=== PATIENT | male | born 1950 | race Caucasian/White ===

== ENCOUNTER 2021-07-27 07:59 | Day surgery (SDC) | payer MEDICARE, BC ==
[2021-07-27] VITALS (9 sets, daily range): BP systolic 123–151; BP diastolic 63–92
[~2021-07-27] VITALS: Ht 177.8 cm; Wt 119.7 kg
[~2021-07-27 07:59] MED LIST: ATEN-170 PO; ATOR40TA72 PO; FENO145T25 PO; FLO0.4C PO; FURO-150 PO; LEVO50TA8 PO; PANT40TA54 PO; PIOG15TA67 PO; SITA1TBM4 PO
[2021-07-27] MEDS ORDERED: diphenhydrAMINE 25mg capsule PO PRN (08:30)
[2021-07-27 09:17] LABS: EOSINOPHILS % (AUTO) 0.4 % (0-6); HEMOGLOBIN 11.1 g/dl (14.0-17.9); LYMPHOCYTES # (AUTO) 0.8 X10'3 (1.1-4.8); MONOCYTES # (AUTO) 0.7 X10'3 (0-0.9); NEUTROPHILS # (AUTO) 7.2 X10'3 (1.8-7.7); PLATELET COUNT 137 X10'3 (140-440); WHITE BLOOD COUNT 8.8 X10'3 (4.5-11.0)
[2021-07-27 09:18] LABS: ANION GAP 13 (8-16); BASOPHILS % (AUTO) 0.3 % (0-1); BLOOD UREA NITROGEN 70 MG/DL (7-18); BUN/CREATININE RATIO 27.6 (5.4-32.0); CALCIUM 8.6 MG/DL (8.5-10.1); CHLORIDE 108 MMOL/L (99-107); CREATININE 2.54 MG/DL (0.60-1.10); GLUCOSE 100 MG/DL (70-104); MEAN CORPUSCULAR HGB CONC 32.6 g/dL (33.0-36.5); MEAN CORPUSCULAR VOLUME 92.1 FL (78-98); MEAN PLATELET VOLUME 11.7 FL (7.4-10.4); MONOCYTES % (AUTO) 8.1 % (2-12); NEUTROPHILS % (AUTO) 82.2 % (42-75); POTASSIUM 4.8 MMOL/L (3.5-5.1); RED CELL DISTRIBUTION WIDTH 16.9 % (11.5-14.5); SODIUM 143 MMOL/L (135-145); TOTAL CARBON DIOXIDE 22.5 MMOL/L (24-32); eGFR 25 ML/MIN
[2021-07-27 09:19] LABS: ALBUMIN 3.7 G/DL (3.4-5.0); MAGNESIUM 2.3 MG/DL (1.5-2.4)
[2021-07-27] MEDS ORDERED: FURO20TA4 PO (09:19)
[2021-07-27] MEDS ORDERED: DEXL60CA3 PO (09:19)
[2021-07-27] MEDS: normal saline 1,000 ML IV SCH ×2 (10:07→16:08)
[2021-07-27 10:30] LABS: ANISOCYTOSIS 1+; PLATELET ESTIMATE DECREASED
[2021-07-27 10:32] LABS: LARGE PLATELETS FEW
[2021-07-27] MEDS ORDERED: iohexol 350MG/ML 100ml bottle IV ONE (11:34)
[2021-07-27] MEDS ORDERED: midazolam 1 mg/ML 2ml injection ONE ×2 (11:34→12:33)
[2021-07-27] MEDS ORDERED: iohexol 350 MG/ML 50ML vial IV ONE (11:34)
[2021-07-27] MEDS ORDERED: heparin 1,000unit/ml 10ml vial 10 ML ONE (11:34)
[2021-07-27] MEDS ORDERED: fentaNYL/PF 50MCG/1 ML 2ML syringe ONE (11:34)
[2021-07-27] MEDS ORDERED: LIDOcaine 1% (10mg/ml)w/preservative injection 20ml MDV ONE (11:34)
[2021-07-27] MEDS ORDERED: verapamil 2.5 mg/ml inj IV ONE (12:27)
[2021-07-27] MEDS ORDERED: nitroGLYCERIN-Tridil 50MG/D5W 250 ML IV ONE (12:27)
[2021-07-27] MEDS ORDERED: normal saline 1000ml 1,000 ML IV SCH (13:25)
[2021-07-27] MEDS ORDERED: HYDROcodone/acetaminophen 5mg/325mg tablet PO PRN (13:25)
[2021-07-27] MEDS ORDERED: HYDROcodone/acetaminophen 10/325mg tab PO PRN (13:25)
[2021-07-27] MEDS ORDERED: furosemide 40mg/4ml inj IV ONE (15:00)
[2021-07-27] MEDS ORDERED: ACETYLCYSTEINE 200 MG/1 ML 4 ML ORAL SOLUTION PO SCH (20:00)
== END 2021-07-27 16:40 | disposition home or self-care (01) ==
LOC: SSTAY O 07:59
PROVIDERS: ATTEND Internal Medicine Cardiovascular Disease
DX: R94.39 Abnormal result of other cardiovascular function study (principal); I25.118 Atherosclerotic heart disease of native coronary artery with other forms of angina pectoris; I10 Essential (primary) hypertension; E78.2 Mixed hyperlipidemia; K21.9 Gastro-esophageal reflux disease without esophagitis; E11.9 Type 2 diabetes mellitus without complications; F17.210 Nicotine dependence, cigarettes, uncomplicated; N40.0 Benign prostatic hyperplasia without lower urinary tract symptoms; Z98.61 Coronary angioplasty status; Z85.72 Personal history of non-Hodgkin lymphomas; Z98.890 Other specified postprocedural states; Z79.899 Other long term (current) drug therapy; Z72.89 Other problems related to lifestyle; Z82.49 Family history of ischemic heart disease and other diseases of the circulatory system
CPT/HCPCS: 36415; 80048; 82948; 83735; 85025; 85610; 93005; 93458; 99152; C1769; C1894; J1644; J1940; J2001; J2250; J3010; J7030; Q0163; Q9967; 85008; 99153; A4620; J3490

== ENCOUNTER 2021-08-19 09:30 | Inpatient (IN) | payer MEDICARE, BC ==
[2021-08-13 15:23] LABS: BASOPHILS % (AUTO) 0.4 % (0-1); EOSINOPHILS # (AUTO) 0.1 X10'3 (0-0.9); EOSINOPHILS % (AUTO) 0.8 % (0-6); LYMPHOCYTES # (AUTO) 0.8 X10'3 (1.1-4.8); LYMPHOCYTES % (AUTO) 11.2 % (21-51); MEAN CORPUSCULAR HEMOGLOBIN 29.6 PG (27.0-31.0); MEAN CORPUSCULAR HGB CONC 32.2 g/dL (33.0-36.5); MEAN CORPUSCULAR VOLUME 92.1 FL (78-98); MEAN PLATELET VOLUME 11.1 FL (7.4-10.4); MONOCYTES # (AUTO) 0.6 X10'3 (0-0.9); MONOCYTES % (AUTO) 8.4 % (2-12); NEUTROPHILS # (AUTO) 5.8 X10'3 (1.8-7.7); NEUTROPHILS % (AUTO) 79.2 % (42-75); PRE OP HEMATOCRIT 35.3 % (42.0-52.0); PRE OP HEMOGLOBIN 11.4 g/dL (14.0-17.9); PRE OP PLATELET COUNT 140 X10'3 (140-440); RED BLOOD COUNT 3.83 X10'6 (4.70-6.10); RED CELL DISTRIBUTION WIDTH 16.6 % (11.5-14.5)
[2021-08-13 15:38] LABS: PRE OP INR 1.2 INR
[2021-08-13 15:46] LABS: CLARITY,URINE CLEAR (Clear); COLOR,URINE YELLOW (Yellow); UA COLLECTION TYPE CLN CATCH MIDSTREAM
[2021-08-13 15:47] LABS: GLUCOSE, URINE NEGATIVE (Neg); KETONES,URINE NEGATIVE (Neg); LEUKOCYTE ESTERASE ,URINE NEGATIVE (Neg); NITRITES, URINE NEGATIVE (Neg); OCCULT BLOOD,URINE NEGATIVE (Neg); PH,URINE 7.5 (4.8-8.0); PROTEIN,URINE 30 mg/dl (Neg); UROBILINOGEN,URINE 0.2 E.U/dL (0.2-1.0)
[2021-08-13 15:48] LABS: ALBUMIN 3.6 G/DL (3.4-5.0); ALKALINE PHOSPHATASE 27 IU/L (46-116); BLOOD UREA NITROGEN 24 MG/DL (7-18); BUN/CREATININE RATIO 14.6 (5.4-32.0); CALCIUM 8.9 MG/DL (8.5-10.1); CHLORIDE 106 MMOL/L (99-107); CREATININE 1.64 MG/DL (0.60-1.10); PRE OP ALT 36 U/L (30-65); PRE OP ANION GAP 8 (8-16); PRE OP AST 42 U/L (10-37); PRE OP BILIRUB, TOTAL 0.8 MG/DL (0.0-1.0); PRE OP GLUCOSE 78 MG/DL (70-104); PRE OP POTASSIUM 4.7 MMOL/L (3.4-5.1); PRE OP SODIUM 140 MMOL/L (135-145); TOTAL PROTEIN 7.1 G/DL (6.4-8.2); eGFR 42 ML/MIN
[2021-08-13 15:52] LABS: BACTERIA,URINE NONE SEEN /HPF (Neg); MUCUS STRANDS NONE SEEN /LPF (Neg); RBC,URINE NONE SEEN /HPF (0-2); SQUAMOUS EPITHELIAL CELL,UR FEW /LPF (FEW); WBC,URINE NONE SEEN /HPF (0-4)
[2021-08-13 15:55] LABS: ANISOCYTOSIS 1+; LARGE PLATELETS FEW; PLATELET ESTIMATE NORMAL
[2021-08-17 06:24] LABS: ABG BASE EXCESS -1.2 mmol/L (-2.0-2.0); ABG OXYGEN SATURATION 96.7 % (94-97); ABG PO2 (T) 85.1 mmHg (75.0-100.0); ALLEN'S TEST POSITIVE; FCOHb 0.4 % (0.0-3.9); FMetHb 0.2 % (0.0-1.5); FO2Hb 96.1 % (94-97); TOTAL HEMOGLOBIN 11.8 G/dl (14.0-18.0)
[~2021-08-19] VITALS: Ht 177.8 cm; Wt 120.7 kg
[2021-08-19] VITALS (16 sets, daily range): BP systolic 70–124; BP diastolic 42–66
[~2021-08-19 09:30] MED LIST changes: +ASPI-1264 PO; -ATEN-170 PO; +ATEN100T PO; +CHOL200012 PO; +DEXL60CA3 PO; -FURO-150 PO; +LIDOcaine 2% (20 mg/ml) 5ml cardiac syringe ONE; +LORazepam 2 mg/ml vial IV PRN; -PANT40TA54 PO; +VANCOMYCIN 1,500MG inj. 1,500 MG in normal saline 500ml IV soln 500 ML IV ONE; +albumin (human) 25% 100 ML IV solution IV ONE; +albuterol 2.5 MG/3 ML nebule NEB ONE; +albuterol 2.5 MG/3 ML nebule NEB PRN; +aminocaproic acid 250 MG/1 ML inj. ONE; +calcium chloride 100 MG/1 ML inj IV ONE; +ceFAZolin 1000mg inj ONE; +ceFAZolin inj. 3,000 MG in normal saline 100ml IV soln 100 ML IV ONE; +epiNEPHrine 1 mg/ml inj ONE; +famotidine 20mg tablet PO ONE; +gabapentin 400mg capsule PO ONE; +heparin 10,000 units/1 ML INJ ONE; +magnesium sulf 1 GM/2 ML ONE; +methylPREDNISolone sod succ 1000mg vial ONE; +metoprolol tartrate 12.5mg (1/2 tablet) PO ONE; +papaverine 30 mg/ml 2ml inj. ONE; +phenylephrine 10mg/ml inj. ONE; +potassium acetate 2 mEq/1ml inj. IV ONE; +ringers solution, lacted 1,000 ML IV SCH; +sodium bicarbonate (8.4%) 1 mEq/ml syringe ONE
[2021-08-19] MEDS ORDERED: dextrose 50%-water 50ml dispensing syringe IV PRN ×2 (10:30→16:10)
[2021-08-19] MEDS: mupirocin 2% nasal ointment 1gm UD NS SCH ×2 (11:13→20:27)
[2021-08-19] MEDS ORDERED: propofol inj 20 ML IV ONE ×2 (11:41)
[2021-08-19] MEDS ORDERED: rocuronium 10mg/ml inj IV ONE ×3 (11:41→11:54)
[2021-08-19] MEDS ORDERED: SUFENTANIL CITRATE 50 MCG/ML 2ml ampule IV ONE (11:41)
[2021-08-19] MEDS ORDERED: MIDAZolam 1 MG/ML 5ML VIAL ONE (11:42)
[2021-08-19] MEDS ORDERED: nitroGLYCERIN in D5W 50mg/250ml (Tridil) infusion IV ONE (11:54)
[2021-08-19] MEDS ORDERED: NORepinephrine 8 MG in NS 250 ML BAG (32 mcg/ml) IV ONE (11:54)
[2021-08-19] MEDS ORDERED: protamine sulf. 10mg/ml inj. IV ONE (11:54)
[2021-08-19] MEDS ORDERED: sevoflurane 250ml liquid IH ONE (11:54)
[2021-08-19] MEDS ORDERED: heparin 10,000 units/1 ML INJ IR ONE (12:00)
[2021-08-19] MEDS ORDERED: papaverine 30 mg/ml 2ml inj. IA ONE (12:00)
[2021-08-19 12:45] LABS: ABG BASE EXCESS -5.6 mmol/L (-2.0-2.0); ABG HCO3 18.6 mmol/L (22.0-26.0); ABG OXYGEN SATURATION 94.5 % (94-97); ABG PCO2 31.7 mmHg (35.0-48.0); ABG PO2 75.3 mmHg (75.0-100.0); CL (ABG) 109 mmol/L (98-110); FCOHb 0.8 % (0.0-3.9); FMetHb 0.3 % (0.0-1.5); FO2Hb 93.5 % (94-97); GLUCOSE (ABG) 75 mg/dl (70-105); IONIZED CA (ABG) 1.18 mmol/L (1.10-1.43); K (ABG) 3.8 mmol/L (3.5-5.0); TOTAL HEMOGLOBIN 9.2 G/dl (14.0-18.0)
[2021-08-19 13:32] LABS: ABG BASE EXCESS VENOUS -1.2 mmol/L (-2.0 - 2.0); ABG HCO3 VENOUS 23.8 mmol/L (21.0-28.0); ABG PO2 VENOUS 52.1 mmHg (25.0-35.0); CL (ABG) 106 mmol/L (98-110); FCOHb VENOUS 1.7 %; FHHb VENOUS 14.3 %; FMetHb VENOUS 0.3 % (0.0 - 0.5); FO2Hb VENOUS 83.7 %; GLUCOSE (ABG) 85 mg/dl (70-105); IONIZED CA (ABG) 1.05 mmol/L (1.10-1.43); K (ABG) 4.1 mmol/L (3.5-5.0); TOTAL HEMOGLOBIN 7.4 G/dl (14.0-18.0)
[2021-08-19 13:38] LABS: ABG BASE EXCESS -2.2 mmol/L (-2.0-2.0); ABG HCO3 22.5 mmol/L (22.0-26.0); ABG OXYGEN SATURATION 99.7 % (94-97); ABG PCO2 38.1 mmHg (35.0-48.0); ABG PO2 404.3 mmHg (75.0-100.0); CL (ABG) 107 mmol/L (98-110); FCOHb 1.3 % (0.0-3.9); FMetHb 0.1 % (0.0-1.5); FO2Hb 98.3 % (94-97); GLUCOSE (ABG) 85 mg/dl (70-105); IONIZED CA (ABG) 1.09 mmol/L (1.10-1.43); K (ABG) 4.1 mmol/L (3.5-5.0); TOTAL HEMOGLOBIN 7.4 G/dl (14.0-18.0)
[2021-08-19 14:10] LABS: ABG BASE EXCESS -2.5 mmol/L (-2.0-2.0); ABG HCO3 22.4 mmol/L (22.0-26.0); ABG OXYGEN SATURATION 99.7 % (94-97); ABG PO2 302.3 mmHg (75.0-100.0); CL (ABG) 108 mmol/L (98-110); FCOHb 1.7 % (0.0-3.9); FMetHb 0.3 % (0.0-1.5); FO2Hb 97.7 % (94-97); GLUCOSE (ABG) 100 mg/dl (70-105); IONIZED CA (ABG) 1.11 mmol/L (1.10-1.43); K (ABG) 4.4 mmol/L (3.5-5.0); TOTAL HEMOGLOBIN 7.5 G/dl (14.0-18.0)
[2021-08-19 14:41] LABS: ABG BASE EXCESS -1.2 mmol/L (-2.0-2.0); ABG HCO3 25.7 mmol/L (22.0-26.0); ABG OXYGEN SATURATION 99.7 % (94-97); ABG PO2 277.7 mmHg (75.0-100.0); CL (ABG) 107 mmol/L (98-110); FCOHb 1.8 % (0.0-3.9); FMetHb 0.3 % (0.0-1.5); FO2Hb 97.6 % (94-97); GLUCOSE (ABG) 115 mg/dl (70-105); IONIZED CA (ABG) 1.14 mmol/L (1.10-1.43); K (ABG) 4.9 mmol/L (3.5-5.0)
[2021-08-19 15:09] LABS: ABG BASE EXCESS -0.4 mmol/L (-2.0-2.0); ABG HCO3 26.1 mmol/L (22.0-26.0); ABG PCO2 53.2 mmHg (35.0-48.0); ABG PO2 269.5 mmHg (75.0-100.0); CL (ABG) 106 mmol/L (98-110); FMetHb 0.3 % (0.0-1.5); FO2Hb 98.7 % (94-97); GLUCOSE (ABG) 131 mg/dl (70-105); IONIZED CA (ABG) 1.23 mmol/L (1.10-1.43); K (ABG) 4.9 mmol/L (3.5-5.0); TOTAL HEMOGLOBIN 8.2 G/dl (14.0-18.0)
[2021-08-19 15:47] LABS: ABG BASE EXCESS VENOUS -0.5 mmol/L (-2.0 - 2.0); ABG HCO3 VENOUS 25.1 mmol/L (21.0-28.0); ABG PCO2 VENOUS 46.2 mmHg (41.0-54.0); ABG PO2 VENOUS 44.9 mmHg (25.0-35.0); CL (ABG) 110 mmol/L (98-110); FCOHb VENOUS 0.8 %; FHHb VENOUS 22.8 %; FO2Hb VENOUS 76.4 %; GLUCOSE (ABG) 157 mg/dl (70-105); IONIZED CA (ABG) 1.28 mmol/L (1.10-1.43); K (ABG) 4.2 mmol/L (3.5-5.0); TOTAL HEMOGLOBIN 7.8 G/dl (14.0-18.0)
[2021-08-19] MEDS ORDERED: albumin (Human) 5% 250ml 250 ML IV ONE ×3 (16:06→23:35)
[2021-08-19] MEDS ORDERED: pantoprazole 40 MG vial IV ONE (16:10)
[2021-08-19] MEDS ORDERED: albumin (Human) 5% 250ml 250 ML IV PRN (16:10)
[2021-08-19] MEDS ORDERED: potassium CL 10mEq/100ml bag 100 ML IV PRN (16:10)
[2021-08-19] MEDS ORDERED: potassium Cl 20mEq/100mL bag 100 ML IV PRN (16:10)
[2021-08-19] MEDS ORDERED: potassium Cl 20 mEq SR tablet PO PRN (16:10)
[2021-08-19] MEDS ORDERED: magnesium 4gm in 100ml NS 100 ML IV PRN (16:10)
[2021-08-19] MEDS ORDERED: bisacodyl 10mg suppository rectal RC PRN (16:10)
[2021-08-19] MEDS ORDERED: Neutra Phos packet PO PRN (16:10)
[2021-08-19] MEDS ORDERED: mineral oil 133ml enema RC PRN (16:10)
[2021-08-19] MEDS ORDERED: morphine 4 MG/ML inj SYRINge IV PRN (16:10)
[2021-08-19] MEDS ORDERED: acetaminophen 325mg tablet PO PRN ×2 (16:10)
[2021-08-19] MEDS ORDERED: ondansetron/PF 4mg/2ml inj IV PRN (16:10)
[2021-08-19] MEDS ORDERED: Insulin Reg/NS 100units/100mL 100 ML IV SCH (16:10)
[2021-08-19] MEDS ORDERED: potassium Cl 40MEQ/250ML bag 250 ML IV PRN (16:10)
[2021-08-19] MEDS ORDERED: magnesium 2GM in 50ml NS 50 ML IV PRN (16:10)
[2021-08-19] MEDS ORDERED: metoclopramide 5 mg/ml inj IV PRN (16:10)
[2021-08-19] MEDS ORDERED: sodium phosphate inj. 15 MMOL in dextrose 5%-water 250 ML IV PRN (16:10)
[2021-08-19] MEDS ORDERED: magnesium hydroxide 30ml (MOM) UD suspension PO PRN (16:10)
[2021-08-19] MEDS ORDERED: magnesium citrate 296ml oral solution PO PRN (16:10)
[2021-08-19] MEDS ORDERED: niCARDipine-NS 40mg/200ml IVPB 200 ML IV PRN (16:10)
[2021-08-19] MEDS ORDERED: nitroGLYCERIN-Tridil 50MG/D5W 250 ML IV PRN (16:10)
[2021-08-19] MEDS ORDERED: insulin glargine (Lantus) pen - multi-dose SQ PRN (16:10)
[2021-08-19] MEDS ORDERED: potassium Cl 40MEQ/1/2NS 520ml 520 ML IV PRN (16:10)
[2021-08-19] MEDS ORDERED: sodium phosphate inj. 30 MMOL in dextrose 5%-water 250 ML IV PRN (16:10)
[2021-08-19] MEDS ORDERED: amiodarone/D5 360MG/200ML BAG 200 ML IV ONE (16:31)
[2021-08-19] MEDS ORDERED: amiodarone 150mg/dext, iso-os 100 ML IV ONE (16:31)
--- NOTE | 2021-08-19 16:45 | NUR ---
Received to room 2044, accompanied by Chepe Jauregui] and surgical crew. Placed on ventilator, to quality assurance monitor body, arterial line and PA line pressure monitored. Chest tubes to suction at 20 cm. Walls cath to gravity drainage. Dressings are dry and intact. See assessment record. All vasoactive drugs are infusing via central line.Volume given for low b/p Patient on levophed from OR Dobutamine at .25 mcg CI 1.8 Mod amt of chest tube drainage noted Lab sent Insulin gtt started for BS 170
[2021-08-19 17:14] LABS: ABG BASE EXCESS -6.5 mmol/L (-2.0-2.0); ABG HCO3 18.6 mmol/L (22.0-26.0); ABG OXYGEN SATURATION 94.9 % (94-97); ABG PCO2 (T) 34.2 mmHg (35.0-48.0); ABG PO2 (T) 78.1 mmHg (75.0-100.0); FCOHb 0.3 % (0.0-3.9); FMetHb 0.4 % (0.0-1.5); FO2Hb 94.2 % (94-97); PATIENT TEMPERATURE 36.2; PEEP 5 cm H2O; RESPIRATORY RATE 12 b/min; TIDAL VOLUME 600 mL; TOTAL HEMOGLOBIN 10.1 G/dl (14.0-18.0)
--- NOTE | 2021-08-19 17:20 | NUR ---
Pt remains paced at 90 CI 1.8 @ albumin given Dr. Jauregui at bedside aware of 200 chest tube output and ABG results
[2021-08-19 17:25] LABS: BASOPHILS % (AUTO) 0.1 % (0-1); EOSINOPHILS % (AUTO) 0.2 % (0-6); HEMATOCRIT 28.7 % (42.0-52.0); HEMOGLOBIN 9.1 g/dl (14.0-17.9); LYMPHOCYTES # (AUTO) 0.4 X10'3 (1.1-4.8); LYMPHOCYTES % (AUTO) 2.9 % (21-51); MEAN CORPUSCULAR HGB CONC 31.7 g/dL (33.0-36.5); MEAN CORPUSCULAR VOLUME 91.6 FL (78-98); MEAN PLATELET VOLUME 11.1 FL (7.4-10.4); MONOCYTES # (AUTO) 0.6 X10'3 (0-0.9); MONOCYTES % (AUTO) 4.3 % (2-12); NEUTROPHILS # (AUTO) 13.5 X10'3 (1.8-7.7); NEUTROPHILS % (AUTO) 92.5 % (42-75); RED BLOOD COUNT 3.13 X10'6 (4.70-6.10); RED CELL DISTRIBUTION WIDTH 15.9 % (11.5-14.5); WHITE BLOOD COUNT 14.6 X10'3 (4.5-11.0)
[2021-08-19 17:27] LABS: PARTIAL THROMBOPLASTIN TIME 29 SECONDS (22-32)
[2021-08-19 17:32] LABS: ALANINE AMINOTRANSFERASE 24 U/L (12-78); ALBUMIN 2.7 G/DL (3.4-5.0); ALBUMIN/GLOBULIN RATIO 1.5 (1.1-1.5); ALKALINE PHOSPHATASE 14 IU/L (46-116); ANION GAP 10 (8-16); ASPARTATE AMINO TRANSFERASE 45 U/L (10-37); BILIRUBIN,TOTAL 0.7 MG/DL (0.1-1.0); BLOOD UREA NITROGEN 30 MG/DL (7-18); CALCIUM 8.3 MG/DL (8.5-10.1); CHLORIDE 111 MMOL/L (99-107); GLUCOSE 179 MG/DL (70-104); MAGNESIUM 2.2 MG/DL (1.5-2.4); PHOSPHORUS 3.8 MG/DL (2.3-4.5); SODIUM 144 MMOL/L (135-145); TOTAL CARBON DIOXIDE 22.8 MMOL/L (24-32); TOTAL PROTEIN 4.5 G/DL (6.4-8.2); eGFR 46 ML/MIN
[2021-08-19 17:36] LABS: POTASSIUM 4.6 MMOL/L (3.5-5.1)
[2021-08-19] MEDS: sodium chloride 0.45% 1,000 ML IV SCH (17:38)
[2021-08-19] MEDS: Insulin Reg/NS 100units/100mL 100 ML IV SCH (17:45)
[2021-08-19 17:59] LABS: PLATELET COUNT 82 X10'3 (140-440)
--- NOTE | 2021-08-19 18:00 | NUR ---
Amiodarone and mg given earlier for mult pvc while paced Pacer turned off because of freq PVC HR 70 on dobutamine CI remains 1.8 Report given to Max RN Chest tube drainage remains mod VSS on levophed and albumin
--- NOTE | 2021-08-19 19:05 | NUR ---
RN Note -MD Communication Called Dr. Jauregui regarding labs and hemodynamics. Orders received.
[2021-08-19] MEDS ORDERED: mupirocin 2% ointment 22GM NS SCH (20:00)
[2021-08-19] MEDS: sennosides/docusate sodium tablet PO SCH (20:27)
[2021-08-19] MEDS: tamsulosin 0.4mg capsule PO SCH (20:27)
[2021-08-19] MEDS: atorvastatin 10mg tablet PO SCH (20:27)
[2021-08-19] MEDS: vancomycin/NS 1 GM ADD-VANTAGE 250 ML IV SCH (20:27)
[2021-08-19] MEDS: gabapentin 300mg capsule PO SCH (20:27)
[2021-08-19] MEDS: NORepinephrine 8mg/ 250ml NS 250 ML IV PRN (20:41)
--- NOTE | 2021-08-19 20:55 | NUR ---
RN Note -MD Communication Called Dr. Jauregui regarding labs and hemodynamics. Orders received.
[2021-08-19 21:22] LABS: HEMATOCRIT 24.2 % (42.0-52.0); HEMOGLOBIN 7.7 g/dl (14.0-17.9); MEAN CORPUSCULAR HEMOGLOBIN 29.1 PG (27.0-31.0); MEAN CORPUSCULAR HGB CONC 31.9 g/dL (33.0-36.5); MEAN CORPUSCULAR VOLUME 91.5 FL (78-98); PLATELET COUNT 154 X10'3 (140-440); RED BLOOD COUNT 2.64 X10'6 (4.70-6.10); RED CELL DISTRIBUTION WIDTH 16.3 % (11.5-14.5); WHITE BLOOD COUNT 18.1 X10'3 (4.5-11.0)
[2021-08-19] MEDS: amiodarone/D5 360MG/200ML BAG 200 ML IV SCH (22:21)
--- NOTE | 2021-08-19 23:15 | NUR ---
RN Note -MD Communication Called Dr. Jauregui regarding labs and hemodynamics. Orders received.
[2021-08-19] MEDS: ceFAZolin/D5W- 1GM premix 50 ML IV SCH (23:42)
[2021-08-20] VITALS (21 sets, daily range): BP systolic 98–148; BP diastolic 50–69
[2021-08-20 00:46] LABS: HEMATOCRIT 25.3 % (42.0-52.0); HEMOGLOBIN 8.2 g/dl (14.0-17.9); MEAN CORPUSCULAR HEMOGLOBIN 29.2 PG (27.0-31.0); MEAN CORPUSCULAR HGB CONC 32.6 g/dL (33.0-36.5); MEAN CORPUSCULAR VOLUME 89.6 FL (78-98); MEAN PLATELET VOLUME 9.8 FL (7.4-10.4); PLATELET COUNT 130 X10'3 (140-440); RED BLOOD COUNT 2.82 X10'6 (4.70-6.10); RED CELL DISTRIBUTION WIDTH 16.4 % (11.5-14.5); WHITE BLOOD COUNT 15.3 X10'3 (4.5-11.0)
[2021-08-20] MEDS: NORepinephrine 8mg/ 250ml NS 250 ML IV PRN ×6 (01:18→13:29)
[2021-08-20] MEDS: morphine 4 MG/ML inj SYRINge IV PRN ×3 (01:41→05:25)
[2021-08-20 02:30] LABS: BASOPHILS % (AUTO) 0 % (0-1); EOSINOPHILS % (AUTO) 0 % (0-6); HEMATOCRIT 25.5 % (42.0-52.0); HEMOGLOBIN 8.1 g/dl (14.0-17.9); LYMPHOCYTES # (AUTO) 0.4 X10'3 (1.1-4.8); LYMPHOCYTES % (AUTO) 2.5 % (21-51); MEAN CORPUSCULAR HGB CONC 31.8 g/dL (33.0-36.5); MEAN CORPUSCULAR VOLUME 91.4 FL (78-98); MEAN PLATELET VOLUME 9.9 FL (7.4-10.4); MONOCYTES # (AUTO) 0.7 X10'3 (0-0.9); MONOCYTES % (AUTO) 4.4 % (2-12); NEUTROPHILS # (AUTO) 14.6 X10'3 (1.8-7.7); NEUTROPHILS % (AUTO) 93.1 % (42-75); PLATELET COUNT 130 X10'3 (140-440); RED BLOOD COUNT 2.79 X10'6 (4.70-6.10); WHITE BLOOD COUNT 15.7 X10'3 (4.5-11.0)
[2021-08-20 02:46] LABS: ALANINE AMINOTRANSFERASE 30 U/L (12-78); ALBUMIN 3.2 G/DL (3.4-5.0); ALBUMIN/GLOBULIN RATIO 1.7 (1.1-1.5); ALKALINE PHOSPHATASE 16 IU/L (46-116); ANION GAP 13 (8-16); ASPARTATE AMINO TRANSFERASE 55 U/L (10-37); BILIRUBIN,TOTAL 0.4 MG/DL (0.1-1.0); BLOOD UREA NITROGEN 34 MG/DL (7-18); BUN/CREATININE RATIO 15.1 (5.4-32.0); CALCIUM 7.8 MG/DL (8.5-10.1); CHLORIDE 112 MMOL/L (99-107); CREATININE 2.25 MG/DL (0.60-1.10); GLUCOSE 139 MG/DL (70-104); MAGNESIUM 2.4 MG/DL (1.5-2.4); PHOSPHORUS 5.5 MG/DL (2.3-4.5); POTASSIUM 4.9 MMOL/L (3.5-5.1); SODIUM 144 MMOL/L (135-145); TOTAL PROTEIN 5.1 G/DL (6.4-8.2); eGFR 29 ML/MIN
[2021-08-20 03:13] LABS: ABG BASE EXCESS -7.4 mmol/L (-2.0-2.0); ABG HCO3 18.6 mmol/L (22.0-26.0); ABG PCO2 (T) 38.9 mmHg (35.0-48.0); ABG PO2 (T) 87.5 mmHg (75.0-100.0); ALLEN'S TEST POSITIVE; FCOHb 0.3 % (0.0-3.9); FMetHb 0.2 % (0.0-1.5); FO2Hb 95.5 % (94-97); PATIENT TEMPERATURE 36.8; PEEP 5 cm H2O; RESPIRATORY RATE 12 b/min; TIDAL VOLUME 600 mL
[2021-08-20] MEDS ORDERED: DOBUTamine-DoBUTrex 500mg/D5W 250 ML IV ONE (05:46)
[2021-08-20] MEDS ORDERED: levoTHYROXINE 25mcg tablet PO SCH (07:00)
--- NOTE | 2021-08-20 07:30 | NUR ---
Go at bedside updated on pt condition
[2021-08-20] MEDS: aspirin 325mg tablet, delayed-release (Ecotrin) PO SCH (07:41)
[2021-08-20] MEDS: vancomycin/NS 1 GM ADD-VANTAGE 250 ML IV SCH ×2 (07:41→20:04)
[2021-08-20] MEDS: ceFAZolin/D5W- 1GM premix 50 ML IV SCH ×2 (07:41→16:30)
[2021-08-20] MEDS: gabapentin 300mg capsule PO SCH ×3 (07:42→20:04)
[2021-08-20] MEDS: sennosides/docusate sodium tablet PO SCH ×2 (07:42→19:49)
[2021-08-20] MEDS: mupirocin 2% nasal ointment 1gm UD NS SCH ×2 (07:42→20:04)
[2021-08-20] MEDS: cholecalciferol (vitamin D3) 1,000 unit (25mcg) tablet PO SCH (07:42)
[2021-08-20] MEDS: metoprolol tartrate 12.5mg (1/2 tablet) PO SCH ×2 (08:40→19:50)
[2021-08-20] MEDS: amiodarone/D5 360MG/200ML BAG 200 ML IV SCH ×2 (09:15→22:19)
[2021-08-20] MEDS ORDERED: albumin (human) 25% 100 ML IV solution IV ONE (10:20)
--- NOTE | 2021-08-20 10:28 | NUR ---
Dr. Jauregui at bedside order received for albumin 25%
[2021-08-20] MEDS ORDERED: SITA1TAB6 PO (10:43)
--- NOTE | 2021-08-20 11:03 | NUR ---
Nutrition consult: Pt s/p CABG x 3 today, would benefit from nutrition therapy education once more stable. Will continue to monitor. Addendum: 08/20/21 at [address] Amended: Links added.
--- NOTE | 2021-08-20 11:33 | NUR ---
pt more awake follows commands and attempts to help with turns
[2021-08-20 11:42] LABS: TOTAL PROTEIN,URINE RANDOM 46.4 MG/DL
[2021-08-20 12:16] LABS: CLARITY,URINE SLIGHTLY CLOUDY (Clear); COLOR,URINE YELLOW (Yellow); UA COLLECTION TYPE NON-SPECIFIED
[2021-08-20 12:17] LABS: GLUCOSE, URINE NEGATIVE (Neg); KETONES,URINE TRACE mg/dl (Neg); LEUKOCYTE ESTERASE ,URINE NEGATIVE (Neg); NITRITES, URINE NEGATIVE (Neg); OCCULT BLOOD,URINE SMALL (Neg); PROTEIN,URINE 30 mg/dl (Neg); UROBILINOGEN,URINE 0.2 E.U/dL (0.2-1.0)
[2021-08-20 12:28] LABS: BACTERIA,URINE NONE SEEN /HPF (Neg); MUCUS STRANDS FEW /LPF (Neg); RBC,URINE 0-2 /HPF (0-2); SQUAMOUS EPITHELIAL CELL,UR NONE SEEN /LPF (FEW); WBC,URINE 0-4 /HPF (0-4)
[2021-08-20 12:29] LABS: HYALINE CASTS 0-3 /LPF (NEGATIVE); SPERM MODERATE /HPF (NEGATIVE)
[2021-08-20 12:45] LABS: ABG BASE EXCESS -9.3 mmol/L (-2.0-2.0); ABG HCO3 16.7 mmol/L (22.0-26.0); ABG OXYGEN SATURATION 93.3 % (94-97); ABG PCO2 (T) 36.2 mmHg (35.0-48.0); ABG PO2 (T) 76.8 mmHg (75.0-100.0); FCOHb 0.3 % (0.0-3.9); FMetHb 0.6 % (0.0-1.5); FO2Hb 92.5 % (94-97); PATIENT TEMPERATURE 36.6; PEEP 5 cm H2O; TOTAL HEMOGLOBIN 7.7 G/dl (14.0-18.0)
[2021-08-20 13:45] LABS: UA EOSINOPHILS NO EOS /HPF
--- NOTE | 2021-08-20 14:08 | NUR ---
inder WRIGHT at bedside updated on pt condition
--- NOTE | 2021-08-20 14:10 | NUR ---
Dr. Jauregui at bedside orders received. extubate pt
[2021-08-20] MEDS ORDERED: calcium chloride 100 MG/1 ML inj IV ONE (14:15)
[2021-08-20] MEDS ORDERED: sodium bicarbonate (8.4%) 1 mEq/ml syringe IV ONE (14:15)
[2021-08-20] MEDS ORDERED: sodium bicarbonate (8.4%) 1 mEq/ml syringe ONE (14:18)
[2021-08-20] MEDS: levoTHYROXINE sod inj. 100mcg/5 ml vial IV SCH (14:59)
--- NOTE | 2021-08-20 15:05 | NUR ---
pt extubated at 1455
[2021-08-20] MEDS: HYDROcodone/acetaminophen 10/325mg tab PO PRN ×2 (15:23→20:57)
[2021-08-20] MEDS ORDERED: racepinephrine 11.25mg/0.5ml nebule IH PRN (16:40)
[2021-08-20] MEDS: albuterol 2.5 MG/3 ML nebule NEB PRN (16:51)
--- NOTE | 2021-08-20 16:55 | NUR ---
pt noted to have audible wheezes and decreased sat to 87. Dr. Rodriguez at bedside orders received
--- NOTE | 2021-08-20 17:24 | NUR ---
Dr. Jauregui [id number] of pt's increased PA pressures ( 62/39), desat into the 83-85, audible wheezes. order received to start bipap
--- NOTE | 2021-08-20 17:45 | NUR ---
pt placed on cpap at 60% with at rate of 10. pt sat is 99% pt's wob improved. pa pressures down to 58/28
[2021-08-20] MEDS ORDERED: furosemide 20 MG/2 ML vial IV ONE (18:20)
[2021-08-20 18:46] LABS: ALBUMIN 3.4 G/DL (3.4-5.0); ANION GAP 14 (8-16); BLOOD UREA NITROGEN 44 MG/DL (7-18); BUN/CREATININE RATIO 14.3 (5.4-32.0); CALCIUM 7.8 MG/DL (8.5-10.1); CHLORIDE 107 MMOL/L (99-107); CREATININE 3.07 MG/DL (0.60-1.10); GLUCOSE 142 MG/DL (70-104); POTASSIUM 5.8 MMOL/L (3.5-5.1); SODIUM 141 MMOL/L (135-145); TOTAL CARBON DIOXIDE 19.9 MMOL/L (24-32); eGFR 20 ML/MIN
[2021-08-20] MEDS: Insulin Reg/NS 100units/100mL 100 ML IV SCH (19:50)
[2021-08-20] MEDS: albuterol 2.5 MG/3 ML nebule NEB SCH (19:59)
[2021-08-20] MEDS: atorvastatin 10mg tablet PO SCH (20:04)
[2021-08-20] MEDS: tamsulosin 0.4mg capsule PO SCH (20:04)
[2021-08-20 20:36] LABS: ABG BASE EXCESS -9.1 mmol/L (-2.0-2.0); ABG HCO3 17.7 mmol/L (22.0-26.0); ABG PCO2 (T) 42.4 mmHg (35.0-48.0); ABG PO2 (T) 134.1 mmHg (75.0-100.0); FCOHb 0.3 % (0.0-3.9); FMetHb 0.7 % (0.0-1.5); PATIENT TEMPERATURE 36.7; TOTAL HEMOGLOBIN 7.4 G/dl (14.0-18.0)
[2021-08-21] VITALS (25 sets, daily range): BP systolic 99–128; BP diastolic 49–66
[2021-08-21] MEDS: ceFAZolin/D5W- 1GM premix 50 ML IV SCH ×2 (00:22→08:29)
[2021-08-21] MEDS: NORepinephrine 8mg/ 250ml NS 250 ML IV PRN ×3 (00:46→18:08)
[2021-08-21] MEDS: albuterol 2.5 MG/3 ML nebule NEB SCH ×4 (02:26→20:26)
[2021-08-21 03:11] LABS: BASOPHILS % (AUTO) 0 % (0-1); EOSINOPHILS % (AUTO) 0 % (0-6); LYMPHOCYTES # (AUTO) 0.4 X10'3 (1.1-4.8); LYMPHOCYTES % (AUTO) 1.5 % (21-51); MEAN CORPUSCULAR HEMOGLOBIN 29.2 PG (27.0-31.0); MEAN CORPUSCULAR HGB CONC 31.9 g/dL (33.0-36.5); MEAN CORPUSCULAR VOLUME 91.6 FL (78-98); MEAN PLATELET VOLUME 11.3 FL (7.4-10.4); MONOCYTES # (AUTO) 2.7 X10'3 (0-0.9); MONOCYTES % (AUTO) 11.2 % (2-12); NEUTROPHILS # (AUTO) 20.7 X10'3 (1.8-7.7); NEUTROPHILS % (AUTO) 87.3 % (42-75); PLATELET COUNT 115 X10'3 (140-440); RED BLOOD COUNT 2.25 X10'6 (4.70-6.10); RED CELL DISTRIBUTION WIDTH 17.5 % (11.5-14.5); WHITE BLOOD COUNT 23.7 X10'3 (4.5-11.0)
[2021-08-21 03:28] LABS: ALBUMIN 3.3 G/DL (3.4-5.0); ANION GAP 13 (8-16); BLOOD UREA NITROGEN 50 MG/DL (7-18); BUN/CREATININE RATIO 13.9 (5.4-32.0); CALCIUM 7.9 MG/DL (8.5-10.1); CHLORIDE 108 MMOL/L (99-107); CREATININE 3.61 MG/DL (0.60-1.10); GLUCOSE 164 MG/DL (70-104); MAGNESIUM 2.3 MG/DL (1.5-2.4); POTASSIUM 5.6 MMOL/L (3.5-5.1); SODIUM 141 MMOL/L (135-145); TOTAL CARBON DIOXIDE 20.3 MMOL/L (24-32); eGFR 17 ML/MIN
[2021-08-21 03:29] LABS: HEMATOCRIT 20.7 % (42.0-52.0); HEMOGLOBIN 6.6 g/dl (14.0-17.9)
[2021-08-21] MEDS: furosemide inj 100 MG in normal saline 100ml IV soln 90 ML IV SCH ×2 (03:50→08:46)
[2021-08-21 04:33] LABS: PLATELET ESTIMATE DECREASED; TOTAL CELLS COUNTED 100
[2021-08-21 04:34] LABS: ANISOCYTOSIS 1+; LARGE PLATELETS FEW; POLYCHROMASIA FEW
[2021-08-21 04:36] LABS: BURR CELLS 1+; SCHISTOCYTES FEW
[2021-08-21] MEDS: aspirin 325mg tablet, delayed-release (Ecotrin) PO SCH (08:00)
[2021-08-21] MEDS: metoprolol tartrate 12.5mg (1/2 tablet) PO SCH ×2 (08:00→20:30)
[2021-08-21] MEDS: mupirocin 2% nasal ointment 1gm UD NS SCH (08:00)
[2021-08-21] MEDS: gabapentin 300mg capsule PO SCH ×2 (08:29→13:00)
[2021-08-21] MEDS: pantoprazole 40mg Tablet.DR PO SCH (08:29)
[2021-08-21] MEDS: sennosides/docusate sodium tablet PO SCH ×2 (08:29→20:30)
[2021-08-21] MEDS: cholecalciferol (vitamin D3) 1,000 unit (25mcg) tablet PO SCH (08:29)
[2021-08-21] MEDS: levoTHYROXINE sod inj. 100mcg/5 ml vial IV SCH (08:31)
[2021-08-21] MEDS: amiodarone/D5 360MG/200ML BAG 200 ML IV SCH ×2 (09:00→19:43)
--- NOTE | 2021-08-21 10:24 | NUR ---
pt placed on 6 liter nc sats 94%
[2021-08-21 12:20] LABS: BASOPHILS % (AUTO) 0.1 % (0-1); EOSINOPHILS % (AUTO) 0 % (0-6); HEMATOCRIT 26.3 % (42.0-52.0); HEMOGLOBIN 8.4 g/dl (14.0-17.9); LYMPHOCYTES # (AUTO) 0.2 X10'3 (1.1-4.8); LYMPHOCYTES % (AUTO) 0.9 % (21-51); MEAN CORPUSCULAR HEMOGLOBIN 28.5 PG (27.0-31.0); MEAN CORPUSCULAR HGB CONC 31.7 g/dL (33.0-36.5); MEAN CORPUSCULAR VOLUME 89.9 FL (78-98); MEAN PLATELET VOLUME 10.8 FL (7.4-10.4); MONOCYTES # (AUTO) 2.3 X10'3 (0-0.9); MONOCYTES % (AUTO) 10.3 % (2-12); NEUTROPHILS # (AUTO) 19.7 X10'3 (1.8-7.7); NEUTROPHILS % (AUTO) 88.7 % (42-75); PLATELET COUNT 108 X10'3 (140-440); RED BLOOD COUNT 2.93 X10'6 (4.70-6.10); RED CELL DISTRIBUTION WIDTH 18.1 % (11.5-14.5); WHITE BLOOD COUNT 22.2 X10'3 (4.5-11.0)
[2021-08-21] MEDS: albuterol 2.5 MG/3 ML nebule NEB PRN (12:48)
--- NOTE | 2021-08-21 12:59 | NUR ---
while pt was drinking milk he began to cough and milk came out of his nose. meal removed pt's head elevated. battery charger informed
[2021-08-21 13:30] LABS: ANISOCYTOSIS 2+; BURR CELLS 1+; HYPOCHROMASIA 1+; PLATELET ESTIMATE DECREASED; POLYCHROMASIA 1+; SMUDGE CELLS FEW; TOTAL CELLS COUNTED 100
[2021-08-21] MEDS: tamsulosin 0.4mg capsule PO SCH (20:30)
[2021-08-21] MEDS: HYDROcodone/acetaminophen 10/325mg tab PO PRN (20:30)
[2021-08-21] MEDS: atorvastatin 10mg tablet PO SCH (20:31)
[2021-08-22] VITALS (24 sets, daily range): BP systolic 89–124; BP diastolic 44–71
[2021-08-22] MEDS: NORepinephrine 8mg/ 250ml NS 250 ML IV PRN ×3 (01:58→18:03)
[2021-08-22] MEDS: albuterol 2.5 MG/3 ML nebule NEB SCH ×5 (02:00→21:03)
[2021-08-22 03:49] LABS: BASOPHILS % (AUTO) 0.1 % (0-1); EOSINOPHILS % (AUTO) 0 % (0-6); HEMATOCRIT 25.3 % (42.0-52.0); HEMOGLOBIN 8.2 g/dl (14.0-17.9); LYMPHOCYTES # (AUTO) 0.2 X10'3 (1.1-4.8); LYMPHOCYTES % (AUTO) 1.4 % (21-51); MEAN CORPUSCULAR HEMOGLOBIN 29.1 PG (27.0-31.0); MEAN CORPUSCULAR HGB CONC 32.6 g/dL (33.0-36.5); MEAN CORPUSCULAR VOLUME 89.1 FL (78-98); MEAN PLATELET VOLUME 9.8 FL (7.4-10.4); MONOCYTES # (AUTO) 1.6 X10'3 (0-0.9); MONOCYTES % (AUTO) 9.9 % (2-12); NEUTROPHILS # (AUTO) 14.4 X10'3 (1.8-7.7); NEUTROPHILS % (AUTO) 88.6 % (42-75); PLATELET COUNT 89 X10'3 (140-440); RED BLOOD COUNT 2.83 X10'6 (4.70-6.10); RED CELL DISTRIBUTION WIDTH 18.1 % (11.5-14.5); WHITE BLOOD COUNT 16.2 X10'3 (4.5-11.0)
[2021-08-22] MEDS: furosemide inj 100 MG in normal saline 100ml IV soln 90 ML IV SCH (04:20)
[2021-08-22 04:49] LABS: ALBUMIN 3.3 G/DL (3.4-5.0); ANION GAP 15 (8-16); BLOOD UREA NITROGEN 64 MG/DL (7-18); BUN/CREATININE RATIO 13.4 (5.4-32.0); CALCIUM 7.8 MG/DL (8.5-10.1); CHLORIDE 106 MMOL/L (99-107); CREATININE 4.79 MG/DL (0.60-1.10); GLUCOSE 155 MG/DL (70-104); MAGNESIUM 2.5 MG/DL (1.5-2.4); PHOSPHORUS 8.9 MG/DL (2.3-4.5); SODIUM 140 MMOL/L (135-145); TOTAL CARBON DIOXIDE 18.8 MMOL/L (24-32); eGFR 12 ML/MIN
[2021-08-22] MEDS ORDERED: dextrose 50%-water 50ml dispensing syringe IV ONE (05:10)
[2021-08-22] MEDS ORDERED: insulin regular, human U-100 3ml vial - multi-dose IV ONE (05:10)
[2021-08-22] MEDS ORDERED: sodium bicarbonate (8.4%) inj. 50 MEQ in dextrose 5%-water 1,000 ML IV SCH (05:10)
[2021-08-22] MEDS ORDERED: sodium bicarbonate (8.4%) 1 mEq/ml syringe IV ONE (05:25)
[2021-08-22] MEDS ORDERED: CALCIUM GLUC 1gm/50ml NACL,iso 50 ML IV ONE (05:25)
[2021-08-22] MEDS ORDERED: insulin regular, human 10 units/0.1 ml syringe IV ONE (06:00)
[2021-08-22] MEDS ORDERED: sodium bicarbonate (8.4%) 1 mEq/ml syringe ONE (06:36)
[2021-08-22] MEDS: amiodarone/D5 360MG/200ML BAG 200 ML IV SCH ×2 (07:49→18:57)
[2021-08-22] MEDS: metoprolol tartrate 12.5mg (1/2 tablet) PO SCH ×2 (08:00→20:06)
[2021-08-22] MEDS: levoTHYROXINE sod inj. 100mcg/5 ml vial IV SCH (08:00)
[2021-08-22] MEDS: pantoprazole 40mg Tablet.DR PO SCH (10:01)
[2021-08-22] MEDS: aspirin 325mg tablet, delayed-release (Ecotrin) PO SCH (10:01)
[2021-08-22] MEDS: cholecalciferol (vitamin D3) 1,000 unit (25mcg) tablet PO SCH (10:01)
[2021-08-22] MEDS: sennosides/docusate sodium tablet PO SCH ×2 (10:01→20:06)
[2021-08-22] MEDS: furosemide inj 1,000 MG in normal saline 250ml IV soln 150 ML IV SCH (11:59)
[2021-08-22] MEDS ORDERED: ondansetron 4mg rapidly disintigrating tab PO PRN (16:05)
[2021-08-22] MEDS: atorvastatin 10mg tablet PO SCH (20:06)
[2021-08-22] MEDS: tamsulosin 0.4mg capsule PO SCH (20:06)
[2021-08-22] MEDS: morphine 4 MG/ML inj SYRINge IV PRN (20:07)
[2021-08-23] VITALS (24 sets, daily range): BP systolic 94–141; BP diastolic 42–63
[2021-08-23] MEDS: albuterol 2.5 MG/3 ML nebule NEB SCH ×4 (02:43→21:58)
[2021-08-23] MEDS: morphine 4 MG/ML inj SYRINge IV PRN (03:38)
[2021-08-23 03:54] LABS: BASOPHILS % (AUTO) 0.2 % (0-1); EOSINOPHILS % (AUTO) 0 % (0-6); HEMATOCRIT 24.2 % (42.0-52.0); LYMPHOCYTES # (AUTO) 0.1 X10'3 (1.1-4.8); LYMPHOCYTES % (AUTO) 1.1 % (21-51); MEAN CORPUSCULAR HEMOGLOBIN 29.4 PG (27.0-31.0); MEAN CORPUSCULAR HGB CONC 33.1 g/dL (33.0-36.5); MEAN PLATELET VOLUME 9.7 FL (7.4-10.4); MONOCYTES # (AUTO) 1.6 X10'3 (0-0.9); MONOCYTES % (AUTO) 11.5 % (2-12); NEUTROPHILS % (AUTO) 87.2 % (42-75); PLATELET COUNT 91 X10'3 (140-440); RED BLOOD COUNT 2.72 X10'6 (4.70-6.10); RED CELL DISTRIBUTION WIDTH 17.8 % (11.5-14.5); WHITE BLOOD COUNT 13.8 X10'3 (4.5-11.0)
[2021-08-23 04:22] LABS: ANION GAP 14 (8-16); BLOOD UREA NITROGEN 73 MG/DL (7-18); BUN/CREATININE RATIO 14.7 (5.4-32.0); CALCIUM 8.1 MG/DL (8.5-10.1); CHLORIDE 106 MMOL/L (99-107); CREATININE 4.96 MG/DL (0.60-1.10); GLUCOSE 168 MG/DL (70-104); MAGNESIUM 2.6 MG/DL (1.5-2.4); PHOSPHORUS 8.3 MG/DL (2.3-4.5); POTASSIUM 5.3 MMOL/L (3.5-5.1); SODIUM 142 MMOL/L (135-145); TOTAL CARBON DIOXIDE 22.2 MMOL/L (24-32); eGFR 12 ML/MIN
[2021-08-23] MEDS: NORepinephrine 8mg/ 250ml NS 250 ML IV PRN (04:25)
[2021-08-23] MEDS: levoTHYROXINE sod inj. 100mcg/5 ml vial IV SCH (08:06)
[2021-08-23] MEDS: sennosides/docusate sodium tablet PO SCH ×2 (08:07→21:16)
[2021-08-23] MEDS: metoprolol tartrate 12.5mg (1/2 tablet) PO SCH ×2 (08:07→21:16)
[2021-08-23] MEDS: aspirin 325mg tablet, delayed-release (Ecotrin) PO SCH (08:07)
[2021-08-23] MEDS: pantoprazole 40mg Tablet.DR PO SCH (08:07)
[2021-08-23] MEDS: cholecalciferol (vitamin D3) 1,000 unit (25mcg) tablet PO SCH (08:07)
[2021-08-23] MEDS: amiodarone 200mg tablet PO SCH ×2 (08:10→21:13)
[2021-08-23] MEDS: furosemide inj 1,000 MG in normal saline 250ml IV soln 150 ML IV SCH (08:13)
--- NOTE | 2021-08-23 13:16 | NUR ---
Initial: Pt s/p CABG x 3 08/20, currently on BiPAP. Pt on Full liquid diet since 08/20 though first documentation of PO this morning, which pt refused meal. Per [employer] Captain, pt w/ hx of CKD and may need CVVH. Communicated w/ RN recommendation for Renal diet if MD agreeable. Pt may not consume ONS since has been refusing meals. No BM documented, receiving routine Senna. Upon assessment, pt asleep and on BiPAP, left written CABG nutrition therapy education w/ RD contact info at bedside w/ RN. Will continue to monitor and make recommendations as appropriate. Recs: 1. Advance to Renal diet if MD agreeable 2. Monitor need for ONS if PO improves 3. IF unable to advance diet or Pt continues to refuse meals, consider TF 4. Bowel care per rx 5. Weekly wts Addendum: 08/23/21 at [address] Amended: Links added.
[2021-08-23] MEDS: sodium chloride 0.45% 1,000 ML IV SCH (16:10)
[2021-08-23] MEDS: Insulin Reg/NS 100units/100mL 100 ML IV SCH ×2 (21:05→21:06)
[2021-08-23] MEDS: atorvastatin 10mg tablet PO SCH (21:15)
[2021-08-23] MEDS: tamsulosin 0.4mg capsule PO SCH (21:16)
[2021-08-24] VITALS (24 sets, daily range): BP systolic 82–127; BP diastolic 38–80
[2021-08-24] MEDS: sodium chloride 0.45% 1,000 ML IV SCH (01:21)
[2021-08-24 03:25] LABS: MAGNESIUM 2.4 MG/DL (1.5-2.4); PHOSPHORUS 7.7 MG/DL (2.3-4.5); POTASSIUM 4.5 MMOL/L (3.5-5.1)
[2021-08-24] MEDS: NORepinephrine 8mg/ 250ml NS 250 ML IV PRN (03:29)
[2021-08-24] MEDS: morphine 4 MG/ML inj SYRINge IV PRN (04:02)
[2021-08-24] MEDS: albuterol 2.5 MG/3 ML nebule NEB SCH ×4 (04:08→20:00)
[2021-08-24 04:55] LABS: BASOPHILS % (AUTO) 0.1 % (0-1); EOSINOPHILS % (AUTO) 0 % (0-6); HEMOGLOBIN 7.2 g/dl (14.0-17.9); LYMPHOCYTES # (AUTO) 0.2 X10'3 (1.1-4.8); LYMPHOCYTES % (AUTO) 1.7 % (21-51); MEAN CORPUSCULAR HEMOGLOBIN 29.3 PG (27.0-31.0); MEAN CORPUSCULAR HGB CONC 32.7 g/dL (33.0-36.5); MEAN CORPUSCULAR VOLUME 89.4 FL (78-98); MONOCYTES # (AUTO) 1.4 X10'3 (0-0.9); MONOCYTES % (AUTO) 13.9 % (2-12); NEUTROPHILS # (AUTO) 8.3 X10'3 (1.8-7.7); NEUTROPHILS % (AUTO) 84.3 % (42-75); PLATELET COUNT 104 X10'3 (140-440); RED BLOOD COUNT 2.46 X10'6 (4.70-6.10); RED CELL DISTRIBUTION WIDTH 17.1 % (11.5-14.5); WHITE BLOOD COUNT 9.8 X10'3 (4.5-11.0)
[2021-08-24 04:59] LABS: ALANINE AMINOTRANSFERASE 20 U/L (12-78); ALBUMIN 2.4 G/DL (3.4-5.0); ALBUMIN/GLOBULIN RATIO 0.9 (1.1-1.5); ALKALINE PHOSPHATASE 30 IU/L (46-116); ANION GAP 14 (8-16); ASPARTATE AMINO TRANSFERASE 36 U/L (10-37); BILIRUBIN,TOTAL 0.4 MG/DL (0.1-1.0); BLOOD UREA NITROGEN 75 MG/DL (7-18); BUN/CREATININE RATIO 14.8 (5.4-32.0); CALCIUM 8.1 MG/DL (8.5-10.1); CHLORIDE 107 MMOL/L (99-107); CREATININE 5.07 MG/DL (0.60-1.10); GLUCOSE 140 MG/DL (70-104); SODIUM 146 MMOL/L (135-145); TOTAL CARBON DIOXIDE 24.7 MMOL/L (24-32); TOTAL PROTEIN 5.2 G/DL (6.4-8.2); eGFR 11 ML/MIN
[2021-08-24] MEDS: metoprolol tartrate 12.5mg (1/2 tablet) PO SCH ×2 (08:00→20:00)
[2021-08-24] MEDS: sennosides/docusate sodium tablet PO SCH ×2 (08:49→20:00)
[2021-08-24] MEDS: aspirin 325mg tablet, delayed-release (Ecotrin) PO SCH (08:49)
[2021-08-24] MEDS: cholecalciferol (vitamin D3) 1,000 unit (25mcg) tablet PO SCH (08:49)
[2021-08-24] MEDS: amiodarone 200mg tablet PO SCH ×2 (08:49→20:00)
[2021-08-24] MEDS: levoTHYROXINE sod inj. 100mcg/5 ml vial IV SCH (08:49)
[2021-08-24] MEDS: pantoprazole 40mg Tablet.DR PO SCH (08:50)
[2021-08-24 10:07] LABS: ACTIVATED CLOTTING TIME 725 SEC (101-148)
[2021-08-24 10:08] LABS: ACTIVATED CLOTTING TIME 118 SEC (101-148)
[2021-08-24 10:08] LABS: ACTIVATED CLOTTING TIME 272 SEC (101-148)
[2021-08-24 10:08] LABS: ACTIVATED CLOTTING TIME 755 SEC (101-148)
[2021-08-24 10:08] LABS: ACTIVATED CLOTTING TIME 780 SEC (101-148)
[2021-08-24 10:08] LABS: ACTIVATED CLOTTING TIME 755 SEC (101-148)
[2021-08-24 10:08] LABS: ACTIVATED CLOTTING TIME 390 SEC (101-148)
[2021-08-24 10:21] LABS: TOTAL PROTEIN,URINE RANDOM 21.9 MG/DL
[2021-08-24 10:24] LABS: ALBUMIN 2.8 G/DL (3.4-5.0); ANION GAP 11 (8-16); BLOOD UREA NITROGEN 82 MG/DL (7-18); BUN/CREATININE RATIO 17.4 (5.4-32.0); CALCIUM 8.4 MG/DL (8.5-10.1); CHLORIDE 107 MMOL/L (99-107); CREATININE 4.72 MG/DL (0.60-1.10); GLUCOSE 156 MG/DL (70-104); MAGNESIUM 2.6 MG/DL (1.5-2.4); PHOSPHORUS 7.9 MG/DL (2.3-4.5); POTASSIUM 4.6 MMOL/L (3.5-5.1); SODIUM 145 MMOL/L (135-145); TOTAL CARBON DIOXIDE 26.6 MMOL/L (24-32); eGFR 12 ML/MIN
[2021-08-24] MEDS: furosemide inj 1,000 MG in normal saline 250ml IV soln 150 ML IV SCH (10:30)
[2021-08-24 10:44] LABS: CLARITY,URINE SLIGHTLY CLOUDY (Clear); COLOR,URINE STRAW (Yellow); GLUCOSE, URINE NEGATIVE (Neg); KETONES,URINE NEGATIVE (Neg); OCCULT BLOOD,URINE SMALL (Neg); PROTEIN,URINE NEGATIVE (Neg); UA COLLECTION TYPE FOLEY CATH
[2021-08-24 10:45] LABS: LEUKOCYTE ESTERASE ,URINE SMALL (Neg); NITRITES, URINE NEGATIVE (Neg); UROBILINOGEN,URINE 0.2 E.U/dL (0.2-1.0)
[2021-08-24] MEDS ORDERED: bisacodyl 10mg suppository rectal RC ONE (10:55)
[2021-08-24 11:09] LABS: MUCUS STRANDS FEW /LPF (Neg); RENAL CELLS, URINE FEW /HPF; SQUAMOUS EPITHELIAL CELL,UR FEW /LPF (FEW); TRANSITIONAL EPI CELLS,URINE FEW /HPF; WBC,URINE 0-4 /HPF (0-4)
[2021-08-24 11:10] LABS: AMORPHOUS URATES 1+
[2021-08-24 11:13] LABS: COARSE GRANULAR CAST 0-3 /LPF (NEGATIVE); HYALINE CASTS 0-3 /LPF (NEGATIVE)
[2021-08-24 11:14] LABS: BACTERIA,URINE NONE SEEN /HPF (Neg)
--- NOTE | 2021-08-24 11:23 | NUR ---
f/u 08/24: Pt w/ mostly 0% intake, though he states he is eating well. Recommend trial Nepro TID, though if pt refuses will d/c ONS. Recs: 1. Advance to Renal diet if MD agreeable 2. Nepro TID; pending MD verification 3. IF unable to advance diet or Pt continues to refuse meals, consider TF 4. Bowel care per rx 5. Weekly wts Addendum: 08/24/21 at [address] Amended: Links added.
[2021-08-24 11:51] LABS: UA EOSINOPHILS NO EOS /HPF
[2021-08-24 16:15] LABS: ALBUMIN 2.8 G/DL (3.4-5.0); ANION GAP 10 (8-16); BLOOD UREA NITROGEN 79 MG/DL (7-18); BUN/CREATININE RATIO 17.2 (5.4-32.0); CALCIUM 8.4 MG/DL (8.5-10.1); CHLORIDE 106 MMOL/L (99-107); CREATININE 4.58 MG/DL (0.60-1.10); GLUCOSE 181 MG/DL (70-104); MAGNESIUM 2.1 MG/DL (1.5-2.4); PHOSPHORUS 6.3 MG/DL (2.3-4.5); SODIUM 146 MMOL/L (135-145); TOTAL CARBON DIOXIDE 29.7 MMOL/L (24-32); eGFR 13 ML/MIN
[2021-08-24] MEDS: tamsulosin 0.4mg capsule PO SCH (21:00)
[2021-08-24] MEDS: atorvastatin 10mg tablet PO SCH (21:00)
[2021-08-24 21:56] LABS: ALBUMIN 2.8 G/DL (3.4-5.0); ANION GAP 12 (8-16); BLOOD UREA NITROGEN 77 MG/DL (7-18); BUN/CREATININE RATIO 16.8 (5.4-32.0); CALCIUM 8.6 MG/DL (8.5-10.1); CHLORIDE 105 MMOL/L (99-107); CREATININE 4.59 MG/DL (0.60-1.10); GLUCOSE 184 MG/DL (70-104); MAGNESIUM 2.2 MG/DL (1.5-2.4); PHOSPHORUS 6.4 MG/DL (2.3-4.5); POTASSIUM 4.2 MMOL/L (3.5-5.1); SODIUM 145 MMOL/L (135-145); TOTAL CARBON DIOXIDE 27.8 MMOL/L (24-32); eGFR 13 ML/MIN
[2021-08-25] VITALS (24 sets, daily range): BP systolic 88–131; BP diastolic 49–72
[2021-08-25] MEDS ORDERED: bisacodyl 10mg suppository rectal RC PRN (00:01)
[2021-08-25] MEDS: albuterol 2.5 MG/3 ML nebule NEB SCH ×4 (02:12→21:17)
[2021-08-25 03:09] LABS: BASOPHILS % (AUTO) 0.1 % (0-1); EOSINOPHILS % (AUTO) 0.1 % (0-6); HEMATOCRIT 26.7 % (42.0-52.0); HEMOGLOBIN 8.9 g/dl (14.0-17.9); LYMPHOCYTES # (AUTO) 0.3 X10'3 (1.1-4.8); LYMPHOCYTES % (AUTO) 1.9 % (21-51); MEAN CORPUSCULAR HEMOGLOBIN 29.3 PG (27.0-31.0); MEAN CORPUSCULAR HGB CONC 33.3 g/dL (33.0-36.5); MEAN CORPUSCULAR VOLUME 88.1 FL (78-98); MEAN PLATELET VOLUME 9.8 FL (7.4-10.4); MONOCYTES # (AUTO) 1.9 X10'3 (0-0.9); MONOCYTES % (AUTO) 12.8 % (2-12); NEUTROPHILS # (AUTO) 12.8 X10'3 (1.8-7.7); NEUTROPHILS % (AUTO) 85.1 % (42-75); PLATELET COUNT 157 X10'3 (140-440); RED BLOOD COUNT 3.03 X10'6 (4.70-6.10); RED CELL DISTRIBUTION WIDTH 16.2 % (11.5-14.5); WHITE BLOOD COUNT 15.1 X10'3 (4.5-11.0)
[2021-08-25 03:25] LABS: ALBUMIN 2.7 G/DL (3.4-5.0); ANION GAP 12 (8-16); BLOOD UREA NITROGEN 78 MG/DL (7-18); BUN/CREATININE RATIO 17.6 (5.4-32.0); CALCIUM 8.2 MG/DL (8.5-10.1); CHLORIDE 106 MMOL/L (99-107); CREATININE 4.43 MG/DL (0.60-1.10); GLUCOSE 158 MG/DL (70-104); MAGNESIUM 2.3 MG/DL (1.5-2.4); PHOSPHORUS 5.9 MG/DL (2.3-4.5); POTASSIUM 3.8 MMOL/L (3.5-5.1); SODIUM 147 MMOL/L (135-145); TOTAL CARBON DIOXIDE 28.6 MMOL/L (24-32); eGFR 13 ML/MIN
[2021-08-25] MEDS: sennosides/docusate sodium tablet PO SCH ×2 (07:49→20:14)
[2021-08-25] MEDS: metoprolol tartrate 12.5mg (1/2 tablet) PO SCH ×2 (07:50→20:00)
[2021-08-25] MEDS: cholecalciferol (vitamin D3) 1,000 unit (25mcg) tablet PO SCH (07:50)
[2021-08-25] MEDS: levoTHYROXINE 25mcg tablet PO SCH (07:51)
[2021-08-25] MEDS: aspirin 325mg tablet, delayed-release (Ecotrin) PO SCH (07:51)
[2021-08-25] MEDS: pantoprazole 40mg Tablet.DR PO SCH (07:51)
[2021-08-25] MEDS: amiodarone 200mg tablet PO SCH ×2 (07:51→20:14)
[2021-08-25] MEDS ORDERED: magnesium 2GM in 50ml NS 50 ML IV PRN (08:05)
[2021-08-25] MEDS ORDERED: potassium Cl 20 mEq SR tablet PO PRN (08:05)
[2021-08-25] MEDS ORDERED: potassium Cl 40MEQ/250ML bag 250 ML IV PRN (08:05)
[2021-08-25] MEDS ORDERED: potassium Cl 40MEQ/1/2NS 520ml 520 ML IV PRN (08:05)
[2021-08-25] MEDS ORDERED: magnesium 4gm in 100ml NS 100 ML IV PRN (08:05)
[2021-08-25] MEDS ORDERED: potassium CL 10mEq/100ml bag 100 ML IV PRN (08:05)
[2021-08-25] MEDS ORDERED: potassium Cl 20mEq/100mL bag 100 ML IV PRN (08:05)
[2021-08-25] MEDS ORDERED: dextrose ORAL solution 15 GM/59 ML bottle PO PRN ×2 (09:00)
[2021-08-25] MEDS ORDERED: insulin Lispro (HumaLOG) vial - multi-dose SQ SCH (09:00)
[2021-08-25] MEDS ORDERED: glucagon, human recombinant 1mg kit SUBCUT PRN (09:00)
[2021-08-25] MEDS ORDERED: dextrose 50%-water 50ml dispensing syringe IV PRN ×2 (09:00)
[2021-08-25 09:46] LABS: ALBUMIN 2.8 G/DL (3.4-5.0); ANION GAP 11 (8-16); BLOOD UREA NITROGEN 78 MG/DL (7-18); BUN/CREATININE RATIO 18.9 (5.4-32.0); CALCIUM 8.5 MG/DL (8.5-10.1); CHLORIDE 104 MMOL/L (99-107); CREATININE 4.13 MG/DL (0.60-1.10); GLUCOSE 215 MG/DL (70-104); MAGNESIUM 2.1 MG/DL (1.5-2.4); PHOSPHORUS 5.1 MG/DL (2.3-4.5); POTASSIUM 3.7 MMOL/L (3.5-5.1); SODIUM 147 MMOL/L (135-145); TOTAL CARBON DIOXIDE 31.7 MMOL/L (24-32); eGFR 14 ML/MIN
--- NOTE | 2021-08-25 09:47 | NUR ---
Nutrition consult: CABG consult previously addressed Addendum: 08/25/21 at [address] Amended: Links added.
[2021-08-25] MEDS: HYDROcodone/acetaminophen 10/325mg tab PO PRN ×2 (15:28→20:13)
[2021-08-25] MEDS: magnesium Cl slow-release 64mg tablet PO SCH (20:00)
[2021-08-25] MEDS: tamsulosin 0.4mg capsule PO SCH (20:14)
[2021-08-25] MEDS: atorvastatin 10mg tablet PO SCH (20:14)
[2021-08-25] MEDS: enoxaparin 30mg/0.3ml syringe SUBCUT SCH (20:15)
[2021-08-25] MEDS: potassium Cl 20 mEq SR tablet PO SCH (20:16)
[2021-08-26] VITALS (25 sets, daily range): BP systolic 76–117; BP diastolic 46–72
[2021-08-26] MEDS: albuterol 2.5 MG/3 ML nebule NEB SCH ×4 (03:20→20:37)
[2021-08-26 03:22] LABS: BASOPHILS % (AUTO) 0.1 % (0-1); EOSINOPHILS # (AUTO) 0.1 X10'3 (0-0.9); HEMOGLOBIN 8.1 g/dl (14.0-17.9); LYMPHOCYTES # (AUTO) 0.4 X10'3 (1.1-4.8); LYMPHOCYTES % (AUTO) 4.1 % (21-51); MEAN CORPUSCULAR HEMOGLOBIN 29.8 PG (27.0-31.0); MEAN CORPUSCULAR HGB CONC 33.8 g/dL (33.0-36.5); MEAN CORPUSCULAR VOLUME 88.1 FL (78-98); MEAN PLATELET VOLUME 10.3 FL (7.4-10.4); MONOCYTES # (AUTO) 1.7 X10'3 (0-0.9); MONOCYTES % (AUTO) 16.6 % (2-12); NEUTROPHILS # (AUTO) 7.8 X10'3 (1.8-7.7); NEUTROPHILS % (AUTO) 78.2 % (42-75); PLATELET COUNT 145 X10'3 (140-440); RED BLOOD COUNT 2.72 X10'6 (4.70-6.10); RED CELL DISTRIBUTION WIDTH 16.2 % (11.5-14.5)
[2021-08-26 03:35] LABS: ALBUMIN 2.5 G/DL (3.4-5.0); ANION GAP 8 (8-16); BLOOD UREA NITROGEN 82 MG/DL (7-18); BUN/CREATININE RATIO 22.8 (5.4-32.0); CALCIUM 8.2 MG/DL (8.5-10.1); CHLORIDE 104 MMOL/L (99-107); CREATININE 3.59 MG/DL (0.60-1.10); GLUCOSE 142 MG/DL (70-104); MAGNESIUM 2.1 MG/DL (1.5-2.4); PHOSPHORUS 4.4 MG/DL (2.3-4.5); POTASSIUM 3.4 MMOL/L (3.5-5.1); SODIUM 143 MMOL/L (135-145); TOTAL CARBON DIOXIDE 31.1 MMOL/L (24-32); eGFR 17 ML/MIN
[2021-08-26 04:52] LABS: ANISOCYTOSIS 1+; PLATELET ESTIMATE NORMAL; TOTAL CELLS COUNTED 100
[2021-08-26] MEDS: potassium Cl 20 mEq SR tablet PO SCH ×2 (07:45→20:09)
[2021-08-26] MEDS: amiodarone 200mg tablet PO SCH ×2 (07:46→20:07)
[2021-08-26] MEDS: cholecalciferol (vitamin D3) 1,000 unit (25mcg) tablet PO SCH (07:46)
[2021-08-26] MEDS: pantoprazole 40mg Tablet.DR PO SCH (07:46)
[2021-08-26] MEDS: aspirin 325mg tablet, delayed-release (Ecotrin) PO SCH (07:46)
[2021-08-26] MEDS: levoTHYROXINE 25mcg tablet PO SCH (07:46)
[2021-08-26] MEDS: magnesium Cl slow-release 64mg tablet PO SCH ×2 (07:46→20:09)
[2021-08-26] MEDS: sennosides/docusate sodium tablet PO SCH ×2 (07:49→20:08)
[2021-08-26] MEDS: metoprolol tartrate 12.5mg (1/2 tablet) PO SCH ×2 (07:52→20:00)
--- NOTE | 2021-08-26 09:43 | NUR ---
MD aware of bp, ok with transferring to PCU.
--- NOTE | 2021-08-26 11:07 | NUR ---
Reassessment: Pt w/ improvement in PO intake though remains fairly low, avg 44% x last 6 meals on HH/SB6 diet not meeting needs. Pt denies any food preferences but agrees to try ONS, recommend Nepro BID. No plan for dialysis per [facility] note. LBM 08/24 receiving routine senna. Will continue to monitor. Recs: 1. Advance to Renal diet if MD agreeable 2. Nepro BIDBD 3. Bowel care per rx 4. Weekly wts Addendum: 08/26/21 at [address] Amended: Links added.
[2021-08-26] MEDS: HYDROcodone/acetaminophen 10/325mg tab PO PRN (14:57)
--- NOTE | 2021-08-26 15:02 | NUR ---
Patient in room ICU 2044. I have received report from CARTER Mccabe and had the opportunity to ask questions and awaiting pts arrival from ICU.
--- NOTE | 2021-08-26 15:35 | NUR ---
Pt arrived from ICU, ambulated with 2 person assist to bedside chair. Alert and Oriented x4, CL within reach, non skid socks on. 2 RN skin check, vitals stable.
--- NOTE | 2021-08-26 18:17 | NUR ---
Problems reprioritized. Patient report given, questions answered & plan of care reviewed with CARTER Hernandes. Pt sitting up in bedside chair eating dinner. No signs of distress All pt needs met at this time.
[2021-08-26] MEDS: NUT.TX.IMP.RENAL FXN,LAC-REDUC (Nepro) 237 ML VANILLA PO SCH (18:30)
[2021-08-26] MEDS: tamsulosin 0.4mg capsule PO SCH (20:07)
[2021-08-26] MEDS: enoxaparin 30mg/0.3ml syringe SUBCUT SCH (20:09)
[2021-08-26] MEDS: atorvastatin 10mg tablet PO SCH (20:09)
[2021-08-27] MEDS: HYDROcodone/acetaminophen 10/325mg tab PO PRN ×2 (01:23→09:17)
[2021-08-27] MEDS: albuterol 2.5 MG/3 ML nebule NEB SCH ×2 (03:53→09:21)
--- NOTE | 2021-08-27 06:21 | NUR ---
Patient in room PCU 3010. I have received report from CARTER Hernandes and had the opportunity to ask questions and assume patient care.
[2021-08-27 07:00] VITALS: BP 103/57
[2021-08-27 07:18] LABS: BASOPHILS % (AUTO) 0.1 % (0-1); EOSINOPHILS # (AUTO) 0.2 X10'3 (0-0.9); EOSINOPHILS % (AUTO) 1.6 % (0-6); HEMATOCRIT 25.8 % (42.0-52.0); HEMOGLOBIN 8.7 g/dl (14.0-17.9); LYMPHOCYTES # (AUTO) 0.5 X10'3 (1.1-4.8); LYMPHOCYTES % (AUTO) 4.5 % (21-51); MEAN CORPUSCULAR HGB CONC 33.7 g/dL (33.0-36.5); MEAN CORPUSCULAR VOLUME 88.9 FL (78-98); MEAN PLATELET VOLUME 9.9 FL (7.4-10.4); MONOCYTES # (AUTO) 1.7 X10'3 (0-0.9); MONOCYTES % (AUTO) 15.6 % (2-12); NEUTROPHILS # (AUTO) 8.6 X10'3 (1.8-7.7); NEUTROPHILS % (AUTO) 78.2 % (42-75); PLATELET COUNT 167 X10'3 (140-440); RED CELL DISTRIBUTION WIDTH 16.1 % (11.5-14.5)
[2021-08-27 07:25] LABS: ALBUMIN 2.6 G/DL (3.4-5.0); ANION GAP 9 (8-16); BLOOD UREA NITROGEN 85 MG/DL (7-18); BUN/CREATININE RATIO 28.9 (5.4-32.0); CALCIUM 8.3 MG/DL (8.5-10.1); CHLORIDE 106 MMOL/L (99-107); CREATININE 2.94 MG/DL (0.60-1.10); GLUCOSE 178 MG/DL (70-104); POTASSIUM 4.2 MMOL/L (3.5-5.1); SODIUM 144 MMOL/L (135-145); TOTAL CARBON DIOXIDE 29.2 MMOL/L (24-32); eGFR 21 ML/MIN
[2021-08-27] MEDS: NUT.TX.IMP.RENAL FXN,LAC-REDUC (Nepro) 237 ML VANILLA PO SCH ×2 (07:30→08:30)
[2021-08-27] MEDS: amiodarone 200mg tablet PO SCH (09:09)
[2021-08-27] MEDS: levoTHYROXINE 25mcg tablet PO SCH (09:09)
[2021-08-27] MEDS: aspirin 325mg tablet, delayed-release (Ecotrin) PO SCH (09:09)
[2021-08-27] MEDS: magnesium Cl slow-release 64mg tablet PO SCH (09:09)
[2021-08-27] MEDS: potassium Cl 20 mEq SR tablet PO SCH (09:09)
[2021-08-27] MEDS: sennosides/docusate sodium tablet PO SCH (09:09)
[2021-08-27] MEDS: pantoprazole 40mg Tablet.DR PO SCH (09:09)
[2021-08-27] MEDS: metoprolol tartrate 12.5mg (1/2 tablet) PO SCH (09:10)
[2021-08-27] MEDS: cholecalciferol (vitamin D3) 1,000 unit (25mcg) tablet PO SCH (09:10)
[2021-08-27 09:12] LABS: ANISOCYTOSIS 1+; PLATELET ESTIMATE NORMAL; TOTAL CELLS COUNTED 100
[2021-08-27 11:00] VITALS: BP 107/92
--- NOTE | 2021-08-27 12:50 | NUR ---
Pt stable for transfer to [facility] per md order. All belongings were collected and sent with . Called report to CARTER Dyer at [facility]. Informed RN importance of splinting chest and not using arms to get up and out of bed or chair. Picked up by [employer] personnel with wheelchair and transported in [facility].
== END 2021-08-27 12:50 | DRG 219 ==
LOC: PAS IN 09:30 → ICU 2S 15:42 → PCU 3S 08-26 15:38
PROVIDERS: ADMIT Thoracic Surgery (Cardiothoracic Vascular Surgery); ATTEND Thoracic Surgery (Cardiothoracic Vascular Surgery)
PROC: 02UG08Z Supplement Mitral Valve with Zooplastic Tissue, Open Approach (ICD-10-PCS; 2021-08-19)
PROC: 021109W Bypass Coronary Artery, Two Arteries from Aorta with Autologous Venous Tissue, Open Approach (ICD-10-PCS; 2021-08-19)
PROC: 06BQ4ZZ Excision of Left Saphenous Vein, Percutaneous Endoscopic Approach (ICD-10-PCS; 2021-08-19)
PROC: 5A1221Z Performance of Cardiac Output, Continuous (ICD-10-PCS; 2021-08-19)
PROC: B24BZZ4 Ultrasonography of Heart with Aorta, Transesophageal (ICD-10-PCS; 2021-08-19)
PROC: 30233N1 Transfusion of Nonautologous Red Blood Cells into Peripheral Vein, Percutaneous Approach (ICD-10-PCS; 2021-08-19)
PROC: 30233R1 Transfusion of Nonautologous Platelets into Peripheral Vein, Percutaneous Approach (ICD-10-PCS; 2021-08-19)
PROC: 02100Z9 Bypass Coronary Artery, One Artery from Left Internal Mammary, Open Approach (ICD-10-PCS; principal; 2021-08-19 11:54)
PROC: 5A09357 Assistance with Respiratory Ventilation, Less than 24 Consecutive Hours, Continuous Positive Airway Pressure (ICD-10-PCS; 2021-08-20)
PROC: 5A09357 Assistance with Respiratory Ventilation, Less than 24 Consecutive Hours, Continuous Positive Airway Pressure (ICD-10-PCS; 2021-08-21)
PROC: 5A09357 Assistance with Respiratory Ventilation, Less than 24 Consecutive Hours, Continuous Positive Airway Pressure (ICD-10-PCS; 2021-08-22)
PROC: 5A09357 Assistance with Respiratory Ventilation, Less than 24 Consecutive Hours, Continuous Positive Airway Pressure (ICD-10-PCS; 2021-08-23)
PROC: 5A09357 Assistance with Respiratory Ventilation, Less than 24 Consecutive Hours, Continuous Positive Airway Pressure (ICD-10-PCS; 2021-08-24)
PROC: 5A09357 Assistance with Respiratory Ventilation, Less than 24 Consecutive Hours, Continuous Positive Airway Pressure (ICD-10-PCS; 2021-08-25)
DX: I25.119 Atherosclerotic heart disease of native coronary artery with unspecified angina pectoris (principal); N17.0 Acute kidney failure with tubular necrosis; D62 Acute posthemorrhagic anemia; I13.0 Hypertensive heart and chronic kidney disease with heart failure and stage 1 through stage 4 chronic kidney disease, or unspecified chronic kidney disease; I50.32 Chronic diastolic (congestive) heart failure; N18.4 Chronic kidney disease, stage 4 (severe); I34.0 Nonrheumatic mitral (valve) insufficiency; E66.01 Morbid (severe) obesity due to excess calories; E11.22 Type 2 diabetes mellitus with diabetic chronic kidney disease; E11.21 Type 2 diabetes mellitus with diabetic nephropathy; G47.33 Obstructive sleep apnea (adult) (pediatric); Z20.822 Contact with and (suspected) exposure to COVID-19; E03.9 Hypothyroidism, unspecified; R45.87 Impulsiveness; K21.9 Gastro-esophageal reflux disease without esophagitis; I48.91 Unspecified atrial fibrillation; E78.5 Hyperlipidemia, unspecified; N40.0 Benign prostatic hyperplasia without lower urinary tract symptoms; Z96.653 Presence of artificial knee joint, bilateral; Z95.5 Presence of coronary angioplasty implant and graft; Z79.899 Other long term (current) drug therapy; Z68.38 Body mass index [BMI] 38.0-38.9, adult
CPT/HCPCS: 36415; 36430; 36600; 71045; 71046; 76376; 80048; 80053; 80069; 81001; 82330; 82435; 82570; 82803; 82947; 82948; 83036; 83735; 84100; 84132; 84156; 84295; 84300; 84443; 85007; 85008; 85018; 85025; 85027; 85347; 85384; 85610; 85730; 86885; 86900; 86901; 86920; 87081; 87207; 87635; 92508; 92616; 93005; 93312; 93325; 93880; 93971; 94002; 94003; 94060; 94640; 94660; 94760; 97110; 97116; 97162; 97530; A4618; A6258; A6449; A7000; A7048; C1751; C9113; G0378; J0171; J0690; J1250; J1644; J1650; J1815; J1940; J2060; J2150; J2250; J2270; J2370; J2440; J2704; J2720; J2930; J3370; J3475; J3480; J3490; J7030; J7040; J7050; J7120; P9016; P9035; P9045; P9047; U0003; U0005

== ENCOUNTER 2021-09-21 10:37 | Day surgery (SDC) | payer MEDICARE, BC ==
[~2021-09-21] VITALS: Ht 175.3 cm; Wt 109.9 kg
[2021-09-21] VITALS (15 sets, daily range): BP systolic 86–123; BP diastolic 55–70
[~2021-09-21 10:37] MED LIST changes: -LIDOcaine 2% (20 mg/ml) 5ml cardiac syringe ONE; -LORazepam 2 mg/ml vial IV PRN; +SITA1TAB6 PO; -SITA1TBM4 PO; -VANCOMYCIN 1,500MG inj. 1,500 MG in normal saline 500ml IV soln 500 ML IV ONE; -albumin (human) 25% 100 ML IV solution IV ONE; -albuterol 2.5 MG/3 ML nebule NEB ONE; -albuterol 2.5 MG/3 ML nebule NEB PRN; -aminocaproic acid 250 MG/1 ML inj. ONE; -calcium chloride 100 MG/1 ML inj IV ONE; -ceFAZolin 1000mg inj ONE; -ceFAZolin inj. 3,000 MG in normal saline 100ml IV soln 100 ML IV ONE; -epiNEPHrine 1 mg/ml inj ONE; -famotidine 20mg tablet PO ONE; -gabapentin 400mg capsule PO ONE; -heparin 10,000 units/1 ML INJ ONE; -magnesium sulf 1 GM/2 ML ONE; -methylPREDNISolone sod succ 1000mg vial ONE; -metoprolol tartrate 12.5mg (1/2 tablet) PO ONE; -papaverine 30 mg/ml 2ml inj. ONE; -phenylephrine 10mg/ml inj. ONE; -potassium acetate 2 mEq/1ml inj. IV ONE; -ringers solution, lacted 1,000 ML IV SCH; -sodium bicarbonate (8.4%) 1 mEq/ml syringe ONE
[2021-09-21] MEDS ORDERED: normal saline 1000ml 1,000 ML IV SCH (11:05)
[2021-09-21] MEDS ORDERED: MIDAZolam 1mg/ml 10ml vial IV ONE (11:05)
[2021-09-21] MEDS ORDERED: fentaNYL/PF 50MCG/1 ML 2ML syringe IV ONE (11:05)
[2021-09-21] MEDS ORDERED: glycopyrrolate 0.2mg/ml inj IV ONE (11:05)
[2021-09-21 11:37] LABS: BASOPHILS % (AUTO) 0.5 % (0-1); EOSINOPHILS % (AUTO) 0.5 % (0-6); HEMATOCRIT 34.7 % (42.0-52.0); HEMOGLOBIN 11.4 g/dl (14.0-17.9); LYMPHOCYTES # (AUTO) 0.5 X10'3 (1.1-4.8); LYMPHOCYTES % (AUTO) 8.7 % (21-51); MEAN CORPUSCULAR HEMOGLOBIN 29.8 PG (27.0-31.0); MEAN CORPUSCULAR HGB CONC 32.8 g/dL (33.0-36.5); MEAN CORPUSCULAR VOLUME 90.9 FL (78-98); MEAN PLATELET VOLUME 10.9 FL (7.4-10.4); MONOCYTES # (AUTO) 0.4 X10'3 (0-0.9); MONOCYTES % (AUTO) 6.5 % (2-12); NEUTROPHILS # (AUTO) 4.7 X10'3 (1.8-7.7); NEUTROPHILS % (AUTO) 83.8 % (42-75); PLATELET COUNT 163 X10'3 (140-440); RED BLOOD COUNT 3.82 X10'6 (4.70-6.10); RED CELL DISTRIBUTION WIDTH 18.7 % (11.5-14.5); WHITE BLOOD COUNT 5.7 X10'3 (4.5-11.0)
[2021-09-21 11:45] LABS: ALBUMIN 4.1 G/DL (3.4-5.0); ANION GAP 12 (8-16); BLOOD UREA NITROGEN 55 MG/DL (7-18); CALCIUM 9.7 MG/DL (8.5-10.1); CHLORIDE 100 MMOL/L (99-107); CREATININE 3.43 MG/DL (0.60-1.10); GLUCOSE 115 MG/DL (70-104); MAGNESIUM 1.6 MG/DL (1.5-2.4); POTASSIUM 4.2 MMOL/L (3.5-5.1); SODIUM 140 MMOL/L (135-145); TOTAL CARBON DIOXIDE 27.8 MMOL/L (24-32); eGFR 18 ML/MIN
[2021-09-21 12:15] LABS: ANISOCYTOSIS 2+; LARGE PLATELETS FEW; PLATELET ESTIMATE NORMAL
[2021-09-21] MEDS ORDERED: PANT40TA54 PO (12:21)
== END 2021-09-21 14:45 | disposition home or self-care (01) ==
LOC: SSTAY O 10:37
PROVIDERS: ATTEND Internal Medicine Cardiovascular Disease
DX: I48.91 Unspecified atrial fibrillation (principal); I48.4 Atypical atrial flutter; I34.0 Nonrheumatic mitral (valve) insufficiency; I25.10 Atherosclerotic heart disease of native coronary artery without angina pectoris; E11.9 Type 2 diabetes mellitus without complications; K21.9 Gastro-esophageal reflux disease without esophagitis; E78.2 Mixed hyperlipidemia; N40.0 Benign prostatic hyperplasia without lower urinary tract symptoms; Z98.890 Other specified postprocedural states; Z79.82 Long term (current) use of aspirin; Z79.899 Other long term (current) drug therapy; Z72.89 Other problems related to lifestyle; Z98.61 Coronary angioplasty status; Z82.49 Family history of ischemic heart disease and other diseases of the circulatory system
CPT/HCPCS: 36415; 80048; 83735; 85025; 85610; 92960; 93005; 93312; 93325; 94799; J2250; J3010; J3490; 85008